=== PATIENT | female | born 1995 | race Caucasian/White ===

== ENCOUNTER 2021-09-27 16:10 | Emergency (ER) | payer BC ==
[~2021-09-27] VITALS: Ht 160 cm; Wt 79.5 kg
[~2021-09-27 16:10] MED LIST: NO HOME MEDICATIONS
[2021-09-27 16:25] VITALS: TEMP 98.1
[2021-09-27 17:02] LABS: BASO % 0.5 % (0.0-2.0); EOS # 0.1 K/mm3 (0.0-0.7); EOS % 0.6 % (0.0-4.0); GRAN # 5.5 K/mm3 (1.4-6.5); GRAN % 62.3 % (42.2-75.2); HEMATOCRIT 39.4 % (37.0-47.0); HEMOGLOBIN 13.2 g/dl (12.5-16.0); LYMPH # 2.5 K/mm3 (1.2-3.4); MEAN CELL VOLUME 87 fl (80.0-100.0); MEAN CORPUSCULAR HEMOGLOBIN 29 pg (27-31); MEAN CORPUSCULAR HGB CONC 34 g/dl (33.0-37.0); MEAN PLATELET VOLUME 8.9 fl (7.4-10.4); MONO # 0.7 K/mm3 (0.1-0.6); MONO % 8.1 % (1.7-9.3); PLATELET COUNT 281 K/mm3 (130-400); RED BLOOD COUNT 4.55 M/mm3 (4.10-5.30); REDCELL DISTRIBUTION WIDTH-CV 12.2 % (11.5-14.5)
[2021-09-27 17:14] LABS: ALANINE AMINOTRANSFERASE 34 U/L (0-55); ALBUMIN 3.8 gm/dL (3.5-5.0); ALKALINE PHOSPHATASE 93 U/L (40-150); ANION GAP 13 mmol/L (7-16); AST,SGOT 23 U/L (5-34); BILIRUBIN,TOTAL 0.2 mg/dL (0.2-1.2); BLOOD UREA NITROGEN 13 mg/dL (7-19); CALCIUM 8.3 mg/dL (8.4-10.2); CARBON DIOXIDE 21 mmol/L (22-29); CHLORIDE 107 mmol/L (98-107); CREATININE, serum 0.72 mg/dL (0.57-1.11); GLUCOSE 97 mg/dL (70-99); POTASSIUM 3.9 mmol/L (3.5-4.5); SODIUM 141 mmol/L (136-145); TOTAL PROTEIN 7.5 gm/dL (6.2-8.1)
[2021-09-27 17:30] LABS: TROPONIN-I < 0.010 ng/mL (0.00-0.033)
[2021-09-27] MEDS ORDERED: ATARAX 25MG25 MG/TAB PO (17:46)
[2021-09-27 18:15] VITALS: BP 108/79; PULSE 78
== END 2021-09-27 18:25 | disposition home or self-care (01) ==
LOC: COL.ER 16:10
PROVIDERS: Nurse Practitioner Primary Care
DX: R00.2 Palpitations (principal); Z28.310 Unvaccinated for COVID-19

== ENCOUNTER 2023-05-17 14:47 | Emergency (ER) | payer MEDICAID ==
[~2023-05-17] VITALS: Ht 160 cm; Wt 72.7 kg
[~2023-05-17 14:47] MED LIST changes: +ATARAX 25MG25 MG/TAB PO; +MOTRIN 800800 MG/TAB PO; +PERCOCET 325 MG1 TA2 PO; +PRENATAL TABLET PO; +PRILOSEC 20MG20 MG PO
[2023-05-17 14:49] VITALS: TEMP 97.6
[2023-05-17 15:40] VITALS: BP 104/72; PULSE 81
== END 2023-05-17 15:41 | disposition home or self-care (01) ==
LOC: COL.ER 14:47
DX: S67.191A Crushing injury of left index finger, initial encounter (principal); W23.0XXA Caught, crushed, jammed, or pinched between moving objects, initial encounter